=== PATIENT | male | born 1960 | race Caucasian/White ===

== ENCOUNTER 2018-11-03 15:58 | Outpatient (CLI) | payer BC ==
--- NOTE | 2018-11-03 17:23 | RAD ---
CERVICAL SPINE FOUR VIEWS: 11/03/18 HISTORY: Cervical stenosis. Left shoulder blade tingling. Left arm pain. COMPARISON: None. FINDINGS: On the AP projection, there is mild facet hypertrophy. No malalignment. Predental space is normal. No significant prevertebral soft tissue swelling. In the neutral lateral p rojection, there is no malalignment. There is osteophyte formation from C2-C3 through C6-C7. No fract ures. Disc space heights are preserved. No malalignment. No abnormal motion upon extension or flexion . IMPRESSION: 1. Extensive osteophyte formation throughout the cervical spine. 2. No significant loss of disc space height. 3. No significant spondylolisthesis in the neutral lateral position or upon extension/flexion. POS: [facility]
== END 2018-11-03 15:59 | disposition home or self-care (01) ==
LOC: BICRAD 15:58
PROVIDERS: ATTEND Surgery
DX: M48.02 Spinal stenosis, cervical region (principal); M25.78 Osteophyte, vertebrae
CPT/HCPCS: 72050

== ENCOUNTER 2019-01-12 13:05 | Outpatient (CLI) | payer BC ==
--- NOTE | 2019-01-12 13:51 | RAD ---
FOUR VIEWS CERVICAL SPINE: HISTORY: Followup neck surgery. FINDINGS: Four views cervical spine are obtained. AP, lateral, open mouth odontoid, and swimmer's view cervical spine obtained and demonstrate ACDF wit h fusion of the C5, 6, and 7 vertebrae. Plate and screws are in good position. Large anterior osteo phytes seen in the anterior aspect of C2, C3, C4 levels. Disk spaces are well maintained. Spinal canal is unremarkable. IMPRESSION: Lower cervical spine fusion with changes of spondylosis seen. POS: [facility]
== END 2019-01-12 13:06 | disposition home or self-care (01) ==
LOC: TBSIIMAG 13:05
PROVIDERS: ATTEND Surgery
DX: M50.10 Cervical disc disorder with radiculopathy, unspecified cervical region (principal); M48.02 Spinal stenosis, cervical region; M47.22 Other spondylosis with radiculopathy, cervical region; Z98.1 Arthrodesis status
CPT/HCPCS: 72040

== ENCOUNTER 2019-06-20 11:51 | Day surgery (SDC) | payer BC ==
[2019-06-17 11:32] VITALS: BMI 25.7
--- NOTE | 2019-06-20 20:52 | MRI ---
MRI LUMBAR SPINE WITHOUT CONTRAST: 06/20/2019 HISTORY: Chronic low back pain. COMPARISON: None. TECHNIQUE: Multiplanar, multisequence MR imaging of the lumbar spine is obtained without contrast. FINDINGS: The sagittal STIR imaging demonstrates no focal area of osseous marrow edema. On the basis of five lumbar type vertebral bodies, the conus medullaris terminates at the L1 level. T12-L1: Mild anterior osteophyte formation and bilateral facet hypertrophy with no significant centra l canal or neural foraminal stenosis. L1-L2: Mild bilateral facet hypertrophy. Mild anterior osteophyte formation. No significant central c anal or neural foraminal stenosis. L2-L3: Mild bilateral facet hypertrophy. Intervertebral disk height and signal intensity appear withi n normal limits. Mild bilateral facet hypertrophy and anterior osteophyte formation with no significa nt central canal or neural foraminal stenosis. L3-L4: Mild bilateral facet hypertrophy. No significant central canal or neural foraminal stenosis. L4-L5: There is disk space narrowing and disk desiccation with central annular tear, mild disk bulge and small central disk protrusion. There is mild associated central canal stenosis. Mild bilateral fa cet hypertrophy. No significant neural foraminal stenosis noted. L5-S1: Mild bilateral facet hypertrophy. No significant central canal stenosis. Mild left neural fora laura stenosis. The visualized retroperitoneal structures appear grossly unremarkable. IMPRESSION: Lumbar spine degenerative change, most prominent at the L4-L5 level, as described above. POS: [facility]
== END 2019-06-20 16:10 | disposition home or self-care (01) ==
LOC: SDC/OP 11:51
PROVIDERS: ATTEND Surgery
DX: M48.061 Spinal stenosis, lumbar region without neurogenic claudication (principal); M51.26 Other intervertebral disc displacement, lumbar region
CPT/HCPCS: 72148

== ENCOUNTER 2019-09-02 05:49 | Day surgery (SDC) | payer BC ==
[2019-08-26 09:39] VITALS: BMI 27.6
[2019-09-02] MEDS ORDERED: Sodium Chloride 0.9% 10 ML ONE (06:25)
[2019-09-02] MEDS ORDERED: Thrombin 5000 UNITS/5 ML VIAL ONE (06:25)
[2019-09-02] MEDS ORDERED: Midazolam HCl 2 mg/2 ml Vial ONE (07:11)
[2019-09-02] MEDS ORDERED: Fentanyl 100 MCG/2 ML VIAL ONE (07:23)
[2019-09-02] MEDS ORDERED: Ondansetron HCl/PF 4 MG/2 ML Vial IVP PRN (09:16)
[2019-09-02] MEDS ORDERED: Morphine Sulfate 2 MG/ML SYRINGE SLOW IVP PRN (09:16)
[2019-09-02] MEDS ORDERED: Promethazine HCl 25 MG/ML VIAL IM PRN (09:16)
[2019-09-02] MEDS ORDERED: PACU-Morphine 4MG/ML VIAL SLOW IVP PRN (09:16)
[2019-09-02] MEDS ORDERED: Promethazine HCl 25 MG/ML VIAL SLOW IVP PRN (09:16)
[2019-09-02] MEDS ORDERED: HYDROmorphone 2 MG/ML VIAL SLOW IVP PRN (09:16)
[2019-09-02] MEDS ORDERED: Milk Of Magnesia 30 ML UDCUP PO PRN (10:02)
[2019-09-02] MEDS ORDERED: Acetaminophen/Codeine 30-300mg Tablet PO PRN (10:02)
[2019-09-02] MEDS ORDERED: Mag-Al 1200 mg/1200 mg/30 ML UDCUP PO PRN (10:02)
[2019-09-02] MEDS ORDERED: tiZANidine HCl 4 MG TAB PO PRN (10:02)
[2019-09-02] MEDS ORDERED: Fleet Enema 133 ML BOT PR PRN (10:02)
[2019-09-02] MEDS ORDERED: Acetaminophen 325 MG TAB PO PRN (10:02)
[2019-09-02] MEDS ORDERED: traMADol HCl 50 MG TAB PO PRN (10:02)
[2019-09-02] MEDS ORDERED: Bisacodyl 10 MG SUPP PR PRN (10:02)
[2019-09-02] MEDS ORDERED: Ondansetron PF 4 MG/2 ML Vial ONE (11:04)
[2019-09-02] MEDS ORDERED: PROPOFOL 200 MG/20 ML VIAL ONE (11:04)
[2019-09-02] MEDS ORDERED: PHENYLEPHRINE-NS 100 MCG/ML 10 ML SYRINGE ONE (11:04)
[2019-09-02] MEDS ORDERED: Metoclopramide HCl 10 MG/2 ML VIAL ONE (11:04)
[2019-09-02] MEDS ORDERED: Ketorolac Tromethamine 30 MG/ML VIAL ONE (11:04)
[2019-09-02] MEDS ORDERED: Rocuronium Bromide 10 MG/ML (10ML VIAL) ONE (11:04)
[2019-09-02] MEDS ORDERED: ePHEDrine/0.9% NaCl/PF SYRINGE 50 mg/10 ml ONE (11:04)
[2019-09-02] MEDS ORDERED: Glycopyrrolate 0.2 MG/ML 5 ML SYRINGE ONE (11:04)
[2019-09-02] MEDS ORDERED: Lidocaine 1% PF 5 ML VIAL ONE (11:04)
--- NOTE | 2019-09-02 11:30 | OP ---
DATE OF PROCEDURE: 09/02/2019 LOCATION: OR 11. WOUND CLASSIFICATION: Type 1 wound. SUSTAINABILITY DIRECTOR: Jossy Devine PA-C PREPROCEDURE DIAGNOSES: Lumbar stenosis with low back and leg pain with lumbar radiculopathy with disk extrusion. POSTPROCEDURE DIAGNOSES: Lumbar stenosis with low back and leg pain with lumbar radiculopathy with disk extrusion. PROCEDURES PERFORMED: 1. L4-L5 laminectomy, partial facetectomy, and foraminotomy with left L4-L5 diskectomy. 2. Use of operative microscope for microdissection. DESCRIPTION OF PROCEDURE: After informed consent was obtained from the patient, the patient was brought to the OR. Proper patient, pause, and identification were carried out. He was placed under excellent endotracheal anesthesia and positioned prone on the OR table. All appropriate points were padded. We identified the L4-L5 dorsal spines. Linear megan was made over this region. This area was sterilely cleansed, prepared, and draped. Proper patient, pause, and identification were carried out. The wound was then opened with a combination of sharp, monopolar, and blunt dissection. The L4-L5 lamina were exposed and dorsal spines. Localization film confirmed area of interest. We then performed an L4-L5 laminectomy, partial facetectomy, foraminotomies, and then brought the microscope in for microdissection for left L4-L5 diskectomy. We removed disk fragments with excellent decompression of common dural tube and the nerve roots. Copious irrigation occurred throughout as did maximizing hemostasis. The wound edges were then closed in anatomic layers following sprinkling of vancomycin powder. The patient emerged from anesthesia. Job ID: [id number]
[2019-09-02] MEDS: Sodium Chloride 0.9% 1,000 ML IV SCH ×2 (11:44→21:37)
[2019-09-02] MEDS: Morphine 2 MG/ML SYRINGE SLOW IVP PRN ×3 (14:37→20:33)
[2019-09-02] MEDS: CEFAZOLIN 2 GM in Premix Bag 1 BAG IVPB SCH ×2 (14:40→21:32)
[2019-09-02] MEDS: Gabapentin 300 MG CAP PO SCH (20:32)
[2019-09-02] MEDS: Lisinopril 2.5 MG TAB PO SCH (20:32)
[2019-09-02] MEDS: metFORMIN 500 MG TAB PO SCH (20:32)
[2019-09-02] MEDS: Atorvastatin Calcium 10 MG TAB PO SCH (20:32)
[2019-09-02] MEDS: HYDROcodone/Acetaminophen 7.5/325 mg Tablet PO PRN (20:33)
[2019-09-02] MEDS: Finasteride 5 MG TAB PO SCH (20:33)
[2019-09-03] MEDS: Morphine 2 MG/ML SYRINGE SLOW IVP PRN (06:01)
[2019-09-03] MEDS: HYDROcodone/Acetaminophen 7.5/325 mg Tablet PO PRN ×3 (06:02→16:22)
[2019-09-03] MEDS ORDERED: FLU VACC QS2019-20(6MOS UP)/PF 60 MCG/0.5 ML SYRINGE IM ONE (09:00)
[2019-09-03] MEDS ORDERED: Diazepam 5 MG TAB PO PRN (09:14)
[2019-09-03] MEDS: Tamsulosin HCl 0.4 MG CAP PO SCH (09:35)
[2019-09-03] MEDS: Gabapentin 300 MG CAP PO SCH ×2 (09:35→21:13)
[2019-09-03] MEDS: metFORMIN 500 MG TAB PO SCH ×2 (09:35→21:13)
--- NOTE | 2019-09-03 10:35 | PRG ---
DATE OF SERVICE: Mr. Randle is doing well postoperative day #1 from lumbar laminectomy. He has incisional pain, and we will work on his muscle spasms. Unfortunately, he has required two in and out catheterizations. This occurred after his cervical spine surgery. He has a urologist. I have recommended placement of an indwelling catheter and followup outpatient with his urologist. He likely needs one more night in the hospital for pain control. Job ID: [id number]
[2019-09-03] MEDS: Ondansetron PF 4 MG/2 ML Vial IVP PRN (10:41)
[2019-09-03] MEDS: Sodium Chloride 0.9% 1,000 ML IV SCH (14:06)
[2019-09-03] MEDS: Lisinopril 2.5 MG TAB PO SCH (21:13)
[2019-09-03] MEDS: Finasteride 5 MG TAB PO SCH (21:13)
[2019-09-03] MEDS: Atorvastatin Calcium 10 MG TAB PO SCH (21:13)
[2019-09-04] MEDS: Sodium Chloride 0.9% 1,000 ML IV SCH ×2 (03:21→16:34)
[2019-09-04] MEDS: Ondansetron PF 4 MG/2 ML Vial IVP PRN (05:22)
[2019-09-04] MEDS ORDERED: Promethazine HCl 25 MG in Sodium Chloride 0.9% 50 ML IVPB PRN (06:07)
[2019-09-04] MEDS: Gabapentin 300 MG CAP PO SCH ×2 (10:58→20:32)
[2019-09-04] MEDS: Tamsulosin HCl 0.4 MG CAP PO SCH (10:59)
[2019-09-04] MEDS: metFORMIN 500 MG TAB PO SCH ×2 (11:09→20:32)
--- NOTE | 2019-09-04 12:48 | PRG ---
DATE OF SERVICE: 09/04/2019 SUBJECTIVE: Mr. Radnle is postop day #2 from lumbar laminectomy. I was called by his nurse earlier this morning with reports that the patient was experiencing nausea despite receiving Zofran. At that time I ordered Phenergan. Upon seeing the patient later this morning, he states that his nausea has resolved. states that he has been very drowsy and more sleepy. She feels that this is the reason he is not getting up and walking as he should be doing. He was able to walk 15 feet yesterday. I have discontinued Phenergan and morphine. We will transition him to oral pain medication and Physical Therapy will see him today and attempt to mobilize him. I will follow up to see how he does with this. Hopefully, he will be able to walk greater distances and can go home. However, I have discussed with the patient and his that he may require inpatient rehab for further management and physical therapy. The patient continues to deny any leg pain, stating that he only is having low back pain. PHYSICAL EXAMINATION: GENERAL: He does appear drowsy and was sleeping upon my entering the room. He awakens easily and responds to questions appropriately. MUSCULOSKELETAL: He has excellent strength throughout his bilateral lower extremity myotomes. He is able to move his legs without difficulty. BACK: His lumbar wound dressing is dry. We will continue to monitor how the patient does with his mobilization, and then consider discharge to home versus inpatient rehab. Call with any questions or concerns. Job ID: [id number]
[2019-09-04] MEDS: Lisinopril 2.5 MG TAB PO SCH (20:31)
[2019-09-04] MEDS: Finasteride 5 MG TAB PO SCH (20:32)
[2019-09-04] MEDS: Atorvastatin Calcium 10 MG TAB PO SCH (20:32)
[2019-09-04] MEDS: HYDROcodone/Acetaminophen 7.5/325 mg Tablet PO PRN (23:28)
[2019-09-05] MEDS: Sodium Chloride 0.9% 1,000 ML IV SCH (05:57)
[2019-09-05 07:22] VITALS: TEMP 99.8
[2019-09-05] MEDS: Tamsulosin HCl 0.4 MG CAP PO SCH (08:47)
[2019-09-05] MEDS: Gabapentin 300 MG CAP PO SCH (08:47)
[2019-09-05] MEDS: metFORMIN 500 MG TAB PO SCH (08:47)
[2019-09-05 10:55] VITALS: BP 134/74
--- NOTE | 2019-09-05 11:08 | PRG ---
DATE OF SERVICE: 09/05/2019 SUBJECTIVE: Mr. Randle is postop day #3 from lumbar laminectomy. Our goal yesterday was to improve mobilization, and the patient was able to ambulate 230 feet with physical therapy, which was much improved from 15 feet the day before. I am encouraged by this improvement. Discussed with the patient discharge home versus inpatient rehab. The patient voiced his preferences to go home. He continues to report low back pain, but denies any leg pain or symptoms. He still appears somewhat drowsy, however, is more awake compared to when I saw him yesterday morning. This is likely associated with the pain medication he has been receiving as well as residual effects of anesthesia and Phenergan, he received earlier in his hospital stay. He continues to have excellent strength throughout his bilateral lower extremity myotome, as well as good movement of his legs. Therefore, plan at this time is to discharge the patient home. His Reese catheter remains in place, and he will schedule an appointment with his urologist to follow up outpatient later this week or early next week. I have requested that the nursing staff train him on the catheter leg bag. I have provided the patient with a one time written prescription for [place] 5/325 and also sent in additional pain medications and muscle relaxants electronically to his pharmacy. The patient already has a 2-1/2 week postop appointment scheduled in September. He will call sooner for any questions or concerns. Job ID: [id number]
== END 2019-09-05 13:02 | disposition home or self-care (01) ==
LOC: SDC 05:49 → SURG A 10:05 → SDC 09-05 13:02
PROVIDERS: ATTEND Surgery
PROC: 0ST20ZZ Resection of Lumbar Vertebral Disc, Open Approach (ICD-10-PCS; principal; 2019-09-02)
DX: M48.061 Spinal stenosis, lumbar region without neurogenic claudication (principal); M51.16 Intervertebral disc disorders with radiculopathy, lumbar region; Z79.82 Long term (current) use of aspirin; Z79.84 Long term (current) use of oral hypoglycemic drugs; Z79.899 Other long term (current) drug therapy; Z98.1 Arthrodesis status
CPT/HCPCS: 36416; 76000; J0690; J1885; J2001; J2250; J2270; J2405; J2550; J2704; J2765; J3010; J3370; J3490